=== PATIENT | male | born 1995 | race Caucasian/White ===

== ENCOUNTER 2020-07-16 14:09 | Emergency (ER) | payer SELFPAY ==
[~2020-07-16] VITALS: Ht 177.8 cm; Wt 74.8 kg
[2020-07-16 14:28] VITALS: BP 125/88
--- NOTE | 2020-07-16 14:32 | NUR ---
amb to bed 12
--- NOTE | 2020-07-16 14:40 | NUR ---
25/M c/o acid reflux pain located at left chest x 12pm today, thinks it was triggered by drinking ETOH last night. States constant, burning hearburn pain. Took Tums to some relief. No SOB, n/v. Skin warm, dry, color appropriate to ethnicity. Hx- GERD NKA
[2020-07-16] MEDS ORDERED: FAMOTIDINE 20 MG TAB PO STA (14:42)
[2020-07-16] MEDS ORDERED: ALUMINUM HYD/MAG/SIMETHICONE 30 ML UDC PO STA (14:42)
[2020-07-16 15:33] VITALS: BP 125/88
--- NOTE | 2020-07-16 15:33 | NUR ---
Patient discharged with v/s stable. Written and verbal after care instructions given and explained. Patient alert, oriented and verbalized understanding of instructions. Ambulatory with steady gait. All questions addressed prior to discharge. ID band removed. Patient advised to follow up with PMD. Rx of omeprazole given. Patient educated on indication of medication including possible reaction and side effects. Opportunity to ask questions provided and answered.
== END 2020-07-16 15:33 | disposition home or self-care (01) ==
LOC: MED 14:09
DX: K21.9 Gastro-esophageal reflux disease without esophagitis (principal)
CPT/HCPCS: 99283

== ENCOUNTER 2021-04-10 23:51 | Emergency (ER) | payer OTHER ==
[~2021-04-10] VITALS: Ht 177.8 cm; Wt 74.4 kg
[2021-04-11] VITALS: BP 150/90
--- NOTE | 2021-04-11 | NUR ---
TO BED AMBULATORY
[2021-04-11 00:10] VITALS: BP 150/90
--- NOTE | 2021-04-11 00:10 | NUR ---
25/M C/O OF BILATERAL RIB PAIN 04/03 WHICH HAPPENED ABOUT 30 MINS AGO. PT DENIES ANY TRAUMA OR STRENOUS ACTIVITY. PT ALSO COMPLAINING OF ANXIETY. PMH: ANXIETY NKDA
[2021-04-11 01:47] LABS: ANION GAP 11.4 (8-16); POTASSIUM 4.4 mmol/L (3.5-5.1)
--- NOTE | 2021-04-11 02:06 | NUR ---
Note aquilino in EDM - 04/11/21 at 0208 by MARVA 38/F c/o bodyaches, h/a, sorethroat, diarrhea, for 2 days. Pt states positive for covid and she has been exposed. Pt denies cough, fever, chills, sob. pmh: asthma, hypothyroid allergy: PCN, tramadol
--- NOTE | 2021-04-11 02:06 | NUR ---
Patient discharged with v/s stable. Written and verbal after care instructions given and explained. Patient verbalized understanding. Carried with steady gait. All questions addressed prior to discharge. Advised to follow up with PMD.
== END 2021-04-11 02:06 | disposition home or self-care (01) ==
LOC: MED 23:51
DX: R07.9 Chest pain, unspecified (principal); F41.9 Anxiety disorder, unspecified
CPT/HCPCS: 36415; 71045; 80048; 93005; 99285